=== PATIENT | female | born 1980 ===

== ENCOUNTER 2022-10-29 11:15 | Outpatient (CLI) | payer OTHER | END 2022-10-29 11:29 | disposition home or self-care (01) | LOC: MRI 11:15 | DX: M54.50 Low back pain, unspecified (principal); M46.46 Discitis, unspecified, lumbar region | CPT/HCPCS: 72148 ==

== ENCOUNTER 2023-03-24 08:35 | Outpatient (CLI) | payer OTHER | END 2023-03-24 08:50 | disposition home or self-care (01) | LOC: RAD 08:35 | PROVIDERS: ATTEND Internal Medicine Rheumatology | DX: M06.09 Rheumatoid arthritis without rheumatoid factor, multiple sites (principal); R05.8 Other specified cough ==

== ENCOUNTER 2023-08-17 09:23 | Outpatient (CLI) | payer OTHER | END 2023-08-17 09:32 | disposition home or self-care (01) | LOC: SONOGRAMA 09:23 | PROVIDERS: ATTEND Internal Medicine Endocrinology, Diabetes & Metabolism | DX: E04.1 Nontoxic single thyroid nodule (principal) ==

== ENCOUNTER 2023-10-12 13:51 | Outpatient (CLI) | payer OTHER | END 2023-10-12 13:54 | disposition home or self-care (01) | LOC: SONOGRAMA 13:51 | PROVIDERS: ATTEND Pathology Anatomic Pathology & Clinical Pathology | DX: E04.1 Nontoxic single thyroid nodule (principal); D34 Benign neoplasm of thyroid gland ==

== ENCOUNTER 2025-05-23 07:21 | Outpatient (CLI) | payer OTHER | END 2025-05-23 07:31 | disposition home or self-care (01) | LOC: MAMO-SONO 07:21 | PROVIDERS: ATTEND Internal Medicine | DX: N64.4 Mastodynia (principal); Z12.31 Encounter for screening mammogram for malignant neoplasm of breast ==